=== PATIENT | female | born 2000 | race Hispanic/Latino ===

== ENCOUNTER 2021-02-12 17:59 | Emergency (ER) | payer OTHER ==
[2021-02-13 19:20] LABS: SARS-CoV-2 PCR by NAA Not Detected (NotDetected)
== END 2021-02-12 19:08 | disposition home or self-care (01) ==
LOC: ERS 17:59
DX: O99.891 Other specified diseases and conditions complicating pregnancy (principal); R50.9 Fever, unspecified; Z20.822 Contact with and (suspected) exposure to COVID-19; Z3A.01 Less than 8 weeks gestation of pregnancy
CPT/HCPCS: 99284; U0003; U0005

== ENCOUNTER 2021-03-07 16:04 | Emergency (ER) | payer OTHER ==
[2021-03-07 17:03] LABS: BHCG - Serum POSITIVE (NEGATIVE); Pregs Control Background? CLEAR/WHITE (CLR/WHITE); Pregs Control Bar Appear? YES (CONTROL BAR)
[2021-03-07 17:40] LABS: Bacteria/HPF None Seen HPF (None Seen); Bilirubin Negative (Negative); Blood, Urine Negative (Negative); Clarity Clear (Clear); Glucose, Urine (Dipstick) Normal (Negative); Ketone, Urine Negative (Negative); Leukocyte 25 Leu/uL (Negative); Nitrite Negative (Negative); Protein, Urine (Dipstick) 10 mg/dL (Neg-Trace); RBC/HPF 0-3 HPF (0-3); Specific Gravity, Urine 1.032 (1.002-1.036); Squamous Epithelial 0-3 HPF (0-3); Urobilinogen Normal mg/dL (Less than 2); WBC/HPF 0-3 HPF (0-3)
[2021-03-09 16:14] LABS: Chlamydia by PCR Not Detected (NotDetected); GC by PCR Not Detected (NotDetected)
== END 2021-03-07 17:43 | disposition home or self-care (01) ==
LOC: ERS 16:04
DX: O98.811 Other maternal infectious and parasitic diseases complicating pregnancy, first trimester (principal); B37.3 Candidiasis of vulva and vagina; Z3A.01 Less than 8 weeks gestation of pregnancy
CPT/HCPCS: 36415; 76856; 81003; 81015; 84702; 84703; 86900; 86901; 87086; 87480; 87491; 87510; 87591; 87660

== ENCOUNTER 2021-04-23 13:21 | Emergency (ER) | payer OTHER | END 2021-04-23 13:33 | disposition left against medical advice (07) | LOC: ERS 13:21 | DX: O99.891 Other specified diseases and conditions complicating pregnancy (principal); R10.9 Unspecified abdominal pain; Z53.21 Procedure and treatment not carried out due to patient leaving prior to being seen by health care provider; Z3A.15 15 weeks gestation of pregnancy ==

== ENCOUNTER 2021-06-24 22:13 | Emergency (ER) | payer OTHER | END 2021-06-24 23:08 | disposition home or self-care (01) | LOC: ERS 22:13 | DX: U07.1 COVID-19 (principal) | CPT/HCPCS: 99283 ==